=== PATIENT | male | born 1985 | race Two or more races ===

== ENCOUNTER 2017-04-12 08:59 | Emergency (ER) | payer OTHER ==
[~2017-04-12] VITALS: Ht 167.6 cm; Wt 81.6 kg
[2017-04-12 08:59] VITALS: BP 115/82
--- NOTE | 2017-04-12 09:10 | NUR ---
Pt c/o sore throat since Sunday, taking A/Bx but not resolving fast enough, low volume in voice and difficulty swallowing. Pt denies CP, SOB, dizziness, n/v, no other complaints, no distress noted.
--- NOTE | 2017-04-12 09:25 | NUR ---
Gave pt work note and d/c instructions, verbalized understanding.
== END 2017-04-12 09:27 | disposition home or self-care (01) ==
LOC: ER 09:02
DX: J02.0 Streptococcal pharyngitis (principal); F10.10 Alcohol abuse, uncomplicated
CPT/HCPCS: 99283; A4606; Z7610

== ENCOUNTER 2017-06-05 11:11 | Emergency (ER) | payer OTHER ==
[~2017-06-05] VITALS: Ht 167.6 cm; Wt 79.4 kg
[2017-06-05 11:19] VITALS: BP 128/79
[2017-06-05] MEDS ORDERED: DEXAMETHASONE SOD PHOSPHATE 4 MG/ML VIAL IM ONE (12:00)
[2017-06-05] MEDS ORDERED: PENICILLIN G BENZATHINE 2.4 MMU/4 ML ML IM ONE ×2 (12:00→12:02)
[2017-06-05] MEDS ORDERED: DEXAMETHASONE SOD PHOSPHATE 10 MG/ML VIAL ONE (12:01)
== END 2017-06-05 13:49 | disposition home or self-care (01) ==
LOC: ER 11:16
DX: J02.9 Acute pharyngitis, unspecified (principal); R59.1 Generalized enlarged lymph nodes; R13.19 Other dysphagia
CPT/HCPCS: 87070; 87880; 96372 ×2; 99284; A4606; J0558; J1100; Z7610; 86403-TC

== ENCOUNTER 2017-06-07 11:30 | Emergency (ER) | payer OTHER ==
[~2017-06-07] VITALS: Ht 167.6 cm; Wt 79.4 kg
--- NOTE | 2017-06-07 12:00 | NUR ---
PT TO ED ROOM 04. 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
[2017-06-07 12:24] LABS: BASOPHILS # (AUTO) 0.1 /CMM (0.0-0.2); BASOPHILS % (AUTO) 0.4 % (0.0-2.0); EOSINOPHILS % (AUTO) 0.2 % (0.0-6.0); HEMATOCRIT 41 % (39-51); HEMOGLOBIN 14.2 g/dL (13.5-17.5); LYMPHOCYTES # (AUTO) 0.9 /CMM (0.8-4.8); LYMPHOCYTES % (AUTO) 6.9 % (20.0-44.0); MEAN CORPUSCULAR HEMOGLOBIN 30 PG (26.0-33.0); MEAN CORPUSCULAR HGB CONC 34 g/dl (31.0-36.0); MEAN CORPUSCULAR VOLUME 88 fL (80-96); MONOCYTES # (AUTO) 1.3 /CMM (0.1-1.30); MONOCYTES % (AUTO) 10.1 % (2.0-12.0); NEUTROPHILS # (AUTO) 10.7 /CMM (1.8-8.9); NEUTROPHILS % (AUTO) 82.4 % (43.0-81.0); PLATELET COUNT (AUTO) 269 /CMM (150-450); RDW COEFFICIENT OF VARIATION 13.5 (11.5-15.0); RED BLOOD CELL COUNT(AUTO) 4.72 MIL/uL (4.5-6.0)
--- NOTE | 2017-06-07 12:24 | NUR ---
BLOOD TESTS DRAWN AND SEND TO LAB R ENOCH G 18 IVSL
[2017-06-07] MEDS ORDERED: diphenhydrAMINE HCL 50 MG/ML VIAL ONE (12:26)
[2017-06-07] MEDS ORDERED: DEXAMETHASONE SOD PHOSPHATE 10 MG/ML VIAL ONE (12:26)
[2017-06-07] MEDS ORDERED: KETOROLAC TROMETHAMINE 15 MG/ML VIAL ONE (12:26)
[2017-06-07] MEDS ORDERED: DEXAMETHASONE SOD PHOSPHATE 10 MG/ML VIAL IV ONE (12:30)
[2017-06-07] MEDS ORDERED: diphenhydrAMINE HCL 50 MG/ML VIAL IV ONE (12:30)
[2017-06-07] MEDS ORDERED: IV NS 0.9% 1,000 ML BAG IV ONE ×2 (12:30→18:30)
[2017-06-07] MEDS ORDERED: KETOROLAC TROMETHAMINE INJ 30 MG/ML VIAL IV ONE (12:30)
[2017-06-07 12:31] LABS: CALCIUM, SERUM 9.2 mg/dL (8.5-10.1); POTASSIUM 4.2 mmol/L (3.5-5.1)
[2017-06-07] MEDS ORDERED: IOHEXOL-300 100 ML VIAL IV ONE (12:48)
[2017-06-07] MEDS ORDERED: IV NS 0.9% 250 ML IV ONE (12:48)
[2017-06-07] MEDS ORDERED: CT SWABBABLE VALVE TRANS SET 1 EA INFUS.SET MC ONE (12:48)
[2017-06-07 13:28] LABS: BAND % (MANUAL) 2 % (0.0-5.0); LYMPHOCYTES % (MANUAL) 6 % (16-48); MONOCYTES % (MANUAL) 11 % (0-11.0); NEUTROPHILS % (MANUAL) 79 (42-76); REACTIVE LYMPHOCYTES 2 % (0-0)
[2017-06-07] MEDS ORDERED: PIPERACILLIN /TAZOBACTAM 3.375 G in IV D5W 50 ML IV ONE (15:30)
--- NOTE | 2017-06-07 17:52 | NUR ---
Patient is resting comfortably in bed with eyes closed. Easily aroused. VSS
--- NOTE | 2017-06-07 18:06 | NUR ---
CALLED DR SWEENEY. . WAS PAGED.
--- NOTE | 2017-06-07 18:10 | NUR ---
PAGED DR QUINTERO.
--- NOTE | 2017-06-07 18:29 | NUR ---
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
--- NOTE | 2017-06-07 18:30 | NUR ---
CALLED [facility], CASE WAS PRESENTED.
--- NOTE | 2017-06-07 19:10 | NUR ---
FRANCISCO CALLED BACK WITH TRASNFER INFORMATION. PATIENT WAS ACCEPTED AT [facility]. MAC # [id number]. ACCEPTING DR RODAS/ [facility] IS THE ENT.
--- NOTE | 2017-06-07 19:18 | NUR ---
CALLED [facility] FOR TRANSPORT ETA 2029 TRIP#[id number]
--- NOTE | 2017-06-07 19:19 | NUR ---
RECEIVED REPORT FROM NADIYA FRANKEL FOR [facility]
[2017-06-07 20:49] VITALS: BP 114/65
--- NOTE | 2017-06-07 20:51 | NUR ---
REPORT GIVEN TO [facility] FOR [facility]. PT AWARE OF TRANSFER. VSS. PT IV INTACT AND PATENT. NO S/S OF INFECTION OR INFILTRATION. PT WITH ALL PERSONAL BELONGINGS. PT BEING TRANSFERED TO [facility] FO HIGHER LEVEL OF CARE VIA GOURNEY. PER EMT TOOK OVER CARE.
== END 2017-06-07 20:54 ==
LOC: ER 11:32
DX: J36 Peritonsillar abscess (principal)
CPT/HCPCS: 36415; 70491-TC; 80048-TC; 85025-TC; A4606; J1100; J1200; J1885; J2543; J7030; J7050; J7060; Q9967; Z7610